=== PATIENT | male | born 1990 | race Caucasian/White ===

== ENCOUNTER 2017-05-25 16:48 | Emergency (ER) | payer OTHER ==
[~2017-05-25] VITALS: Ht 182.9 cm; Wt 74.8 kg
--- NOTE | ~2017-05-25 | CR282 ---
[facility] A Service of [facility] & [facility] RADIOLOGY TEXT RESULTS PATIENT: LOIS KAMARA LOCATION: CFTX : 86 UNIT #: [id number] AGE: [address]: Raegan Amaral APRN SEX: M ORDER DR: [id number] [facility] [address] [place], [place] [address] [id number] E MR#: [id number] Acc #: [id number] NAME: LOIS KAMARA : 1990 SEX: M STUDY DATE/TIME: 05/25/2017 17:14 UNIT: [facility] ROOM: STUDY DESCRIPTION: CR Wrist Min 3 View Rt Attending Physician: Raegan Amaral A.P.R.N. Ordering Physician: Awais Jamison M.D. Primary Care Physician: Primary Care Physician No MEDICAL IMAGING REPORT This report is preliminary unless electronic signature is present EXAM Right wrist, 05/25/2017 HISTORY 26-year-old male with right hand and wrist pain, status post fall today. COMPARISON Right hand, same date. FINDINGS Three views of the right wrist demonstrate a moderately impacted and angulated spiral oblique fracture distal shaft of the fifth metacarpal. [place] dorsal angulation. No articular surface disruption or dislocation. Carpal bones are intact and in normal alignment. IMPRESSION Moderately impacted and angulated spiral oblique fracture distal shaft, fifth metacarpal. No articular surface disruption or dislocation. Dictated by... Lee Chase M.D. THIS IS AN ELECTRONICALLY VERIFIED REPORT Lee Chase M.D. at 05/26/2017 2:38 PM SARAHI/bianka TD: 05/26/2017 04:22 JOB #: [id number] MEDICAL IMAGING REPORT Page 1 of 1 COPY
--- NOTE | ~2017-05-25 | CR142 ---
[facility] A Service of [facility] & [facility] RADIOLOGY TEXT RESULTS PATIENT: LOIS KAMARA LOCATION: CFTX : 86 UNIT #: [id number] AGE: [address]: Raegan Amaral APRN SEX: M ORDER DR: [id number] [facility] [address] [place], [place] [address] [id number] E MR#: [id number] Acc #: [id number] NAME: LOIS KAMARA : 1990 SEX: M STUDY DATE/TIME: 05/25/2017 17:12 UNIT: [facility] ROOM: STUDY DESCRIPTION: CR Hand Min 3 Views Rt Attending Physician: Raegan Amaral A.P.R.N. Ordering Physician: Ed Doctor [id number] [facility] Primary Care Physician: Primary Care Physician No MEDICAL IMAGING REPORT This report is preliminary unless electronic signature is present EXAM Right hand 05/25/2017 HISTORY 26-year-old male with right hand pain status post fall today. COMPARISON Right wrist same date. FINDINGS 4 views of the right hand demonstrate a moderately displaced and angulated spiral oblique fracture of the distal shaft of the fifth metacarpal. [place] dorsal angulation. No articular surface disruption. Soft tissue swelling over the dorsal/ulnar aspect of the hand. IMPRESSION Moderately impacted and angulated tract spiral oblique fracture distal shaft fifth metacarpal. No articular surface disruption or dislocation Dictated by... Lee Chase M.D. THIS IS AN ELECTRONICALLY VERIFIED REPORT Lee Chase M.D. at 05/26/2017 2:38 PM SARAHI/elliott TD: 05/26/2017 04:20 JOB #: [id number] MEDICAL IMAGING REPORT Page 1 of 1 COPY
[~2017-05-25 16:48] MED LIST: BACTRIM DS TABL1 TAB PO; BACTROBAN15 GM TOP; BENZONATATE PO; DOXYCYCLINE PO; HYDROCODONE-APAP5 M1 PO; KEFLEX PO; LEVAQUIN750 M1 PO; NICOTINE T1 PATCH .2 TOP; NORCO 5/325 TAB1 TAB PO; PHENERGAN25 M1 PO; VICODIN 5/500 T1 TAB PO; [UNRECOGNIZED DRUG - OTHER]
== END 2017-05-25 18:30 | disposition home or self-care (01) ==
LOC: CFTX 16:48 → CED 16:48 → CFTX 17:09
DX: S62.326A Displaced fracture of shaft of fifth metacarpal bone, right hand, initial encounter for closed fracture (principal); F17.210 Nicotine dependence, cigarettes, uncomplicated; W01.198A Fall on same level from slipping, tripping and stumbling with subsequent striking against other object, initial encounter; Y92.009 Unspecified place in unspecified non-institutional (private) residence as the place of occurrence of the external cause; I10 Essential (primary) hypertension; J45.909 Unspecified asthma, uncomplicated
CPT/HCPCS: 29125; 73110; 73130; 99283